=== PATIENT | female | born 1990 | race Caucasian/White ===

== ENCOUNTER 2017-11-14 20:22 | Emergency (ER) | payer OTHER ==
[2017-11-14] MEDS ORDERED: LIDOCAINE 1% INJ-PF (10 MG/ML) 30 ML SDV INJ ONE (22:19)
--- NOTE | 2017-11-14 22:23 | ER Document Report ---
ED General - General Chief Complaint: Laceration Stated Complaint: ELBOW LACERATION Time Seen by Provider: 11/14/17 22:05 Mode of Arrival: Ambulatory Information source: Patient Notes: 27-year-old female with no reported past medical history presents with a laceration to her right elbow. Patient states that just prior to arrival she was in her car and forgot that there was a big bag with broken glass in it. She states that she directly placed her elbow on top of the bag sustaining a laceration. Patient's tetanus is believed to be up-to-date. 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 Patient initially went to urgent care where it was irrigated. Patient denies any foreign body sensation. - HPI Onset: Just prior to arrival Onset/Duration: Sudden Quality of pain: Burning Severity: Mild Associated symptoms: None Exacerbated by: Denies Similar symptoms previously: No Recently seen / treated by doctor: No Past Medical History - General Information source: Patient, [facility] Records - Social History Smoking Status: Never Smoker Frequency of alcohol use: None Drug Abuse: None Lives with: Family Family History: Reviewed & Not Pertinent Patient has suicidal ideation: No Patient has homicidal ideation: No - Medical History Medical History: Negative Renal/ Medical History: Denies: Hx Peritoneal Dialysis Review of Systems - Review of Systems Notes: REVIEW OF SYSTEMS: CONSTITUTIONAL : Denies fever, chills, or sweats. Denies recent illness. Denies weight loss, recent hospitalizations. EENT: Denies visula changes, eye pain. Denies nasal or sinus congestion or discharge. Denies sore throat, oral lesions, difficulty swallowing. CARDIOVASCULAR: Denies chest pain. Denies palpitations or racing or irregular heart beat. Denies lower extremity edema. RESPIRATORY: Denies cough, cold, or chest congestion. Denies shortness of breath, difficulty breathing, or wheezing. GASTROINTESTINAL: Denies abdominal pain or distention. Denies nausea, vomiting , or diarrhea. Denies blood in vomitus, stools, or per rectum. Denies black, tarry stools. Denies constipation. GENITOURINARY: Denies difficulty urinating, painful urination, burning, frequency, blood in urine, or vaginal discharge. MUSCULOSKELETAL: Denies back or neck pain or stiffness. Denies joint pain or swelling. SKIN: Denies rash, HEMATOLOGIC : Denies easy bruising or bleeding. LYMPHATIC: Denies swollen, enlarged glands. NEUROLOGICAL: Denies confusion or altered mental status. Denies passing out or loss of consciousness. Denies dizziness or lightheadedness. Denies headache. Denies weakness or paralysis or loss of use of either side. Denies problems with gait or speech. Denies sensory loss, numbness, or tingling. Denies seizures. PSYCHIATRIC: Denies anxiety or stress. Denies depression, suicidal ideation, or homicidal ideation. Physical Exam - Vital signs Vitals: Temp Pulse Resp BP Pulse Ox 98.8 F 67 18 115/83 100 11/14/17 21:23 11/14/17 21:23 11/14/17 21:23 11/14/17 21:23 11/14/17 21:23 - Notes Notes: PHYSICAL EXAMINATION: GENERAL: Well-appearing, well-nourished and in no acute distress. HEAD: Atraumatic, normocephalic. EYES: Pupils equal round and reactive to light, extraocular movements intact, conjunctiva are normal. ENT: Nares patent, oropharynx clear without exudates. Moist mucous membranes. NECK: Normal range of motion, supple without lymphadenopathy LUNGS: Breath sounds clear to auscultation bilaterally and equal. No wheezes rales or rhonchi. HEART: Regular rate and rhythm without murmurs ABDOMEN: Soft, nontender, nondistended abdomen. No guarding, no rebound. No masses appreciated. Female : deferred Musculoskeletal: Normal range of motion, no pitting or edema. No cyanosis. NEUROLOGICAL: Cranial nerves grossly intact. Normal speech, normal gait. Normal sensory, motor exams PSYCH: Normal mood, normal affect. SKIN: 2.5 cm superficial laceration to the right elbow. Course - Re-evaluation Re-evalutation: Elbow X-Ray 11/14/17 22:18 IMPRESSION: No acute findings. 11/15/17 00:11 27-year-old female with no reported past medical history presents with a laceration to her right elbow. Patient states that just prior to arrival she was in her car and forgot that there was a big bag with broken glass in it. She states that she directly placed her elbow on top of the bag sustaining a laceration. Patient was seen by myself upon arrival. Vital signs were reviewed. Patient is afebrile, normotensive and not hypoxic. Patient does not appear toxic or dehydrated. They are in no acute distress. Previous medical records and nursing notes reviewed. Significant findings include a 2.5 cm laceration of the right elbow. X-ray was obtained to assess for retained glass and this was within normal limits. Suture repair was performed without difficulty. 3 horizontal mattresses were placed. Patient was advised to return in 10-12 days for suture removal. Patient provided the opportunity to ask questions, and express concerns. Discharge instructions discussed. Patient is agreeable with discharge home. Return indications explained and discussed with the patient who displays understanding. Patient encouraged to return to the emergency department immediately with any concerns. - Vital Signs Vital signs: Temp Pulse Resp BP Pulse Ox 98.5 F 78 20 121/75 100 11/14/17 23:15 11/14/17 23:15 11/14/17 23:15 11/14/17 23:15 11/14/17 23:15 - Diagnostic Test Radiology reviewed: Pending, Image reviewed, Reports reviewed Procedures - Laceration/Wound Repair Right Elbow Time completed: 22:50 Wound length (cm): 2.5 Wound's Depth, Shape: Linear Laceration pre-procedure: Sterile PPE donned, Sterile drapes applied, Shur- Clens applied Anesthetic type: 1% Lidocaine Volume Anesthetic (mLs): 5 Wound explored: Clean, No foreign body removed Wound Repaired With: Sutures Suture Size/Type: 4:0, Prolene Number of Sutures: 3 - horizontal mattress Layer Closure?: No Post-procedure wound care: Sterile dressing applied Post-procedure NV exam normal: Yes Complications: No Discharge - Discharge Clinical Impression: Elbow laceration Qualifiers: Encounter type: initial encounter Laterality: right Qualified Code(s): S51.011A - Laceration without foreign body of right elbow, initial encounter Condition: Good Disposition: HOME, SELF-CARE Instructions: Antibiotic Ointment Protection ([facility]), Laceration Care ([facility]) Additional Instructions: Please return in 10-12 days for suture removal
--- NOTE | 2017-11-14 22:54 | RADIOLOGY REPORT (SQ) ---
EXAM DESCRIPTION: XR ELBOW 3 VIEWS CLINICAL HISTORY: 27 years Female, laceration w glass COMPARISON: None. Findings: Soft tissue injury, no radiopaque foreign body. Bones, joints, and soft tissues of the XR RIGHT ELBOW 4 VIEWS appear otherwise intact. IMPRESSION: No acute findings.
[2017-11-14 23:17] VITALS: BP 121/75
== END 2017-11-14 23:09 | disposition home or self-care (01) ==
LOC: ER 20:22
PROC: 0HQDXZZ Repair Right Lower Arm Skin, External Approach (ICD-10-PCS; principal; 2017-11-14)
DX: S51.011A Laceration without foreign body of right elbow, initial encounter (principal); W25.XXXA Contact with sharp glass, initial encounter
CPT/HCPCS: 99283; 73080; 12001; J3490